=== PATIENT | male | born 1980 | race Caucasian/White ===

== ENCOUNTER → 2018-07-14 | Outpatient (CLI) | payer OTHER ==
--- NOTE | 2018-07-14 12:04 | KCIC ---
MR of the left ankle Indication: Pain and swelling of the left ankle. Injury 6 weeks ago. Comparison: None are available Technique: Standard multiplanar sequences are obtained. FINDINGS: Artifact: No significant image degradation. Lateral: Peroneal tendons: Intact, no dislocation Lateral collateral ligaments: * Anterior talofibular ligament: Not visualized, compatible with a rupture. * Calcaneofibular ligament: High-grade tear/rupture. * Posterior talofibular ligament: Intact Tibiofibular syndesmosis: Anterior inferior tibiofibular ligament is intact. Tibiofibular syndesmosis is intact. Medial: Posterior tibial tendon: Intact Flexor digitorum longus and hallucis tendons: Intact Medial ligaments: Diffuse edema and swelling of the deep fibers of the deltoid ligament. Anterior: Anterior tibial tendon: Intact Extensor hallucis longus tendon: Intact Extensor digitorum longus tendon: Intact Posterior: Achilles tendon: Intact Plantar aponeurosis: No acute plantar fasciitis Subtalar joints: Patent Tarsal sinus: Intact Talar Dome: Intact Bones: Marrow edema within the medial talus and medial malleolus. Marrow edema within the lateral distal tibia. No evidence of an acute fracture. Marrow edema within the medial navicular bone. Mild marrow edema at the anterior process of the calcaneus. Fluid: Small effusion Joints: No advanced DJD. Soft tissues: Unremarkable Impression: 1. Anterior talofibular and calcaneofibular ligament tears. 2. Deltoid ligament sprain. 3. Patchy areas of bone marrow edema/contusion. 4. Small tibiotalar joint effusion. Electronically signed by: Phi Maciel MD (07/14/2018 12:00 PM) [id number]
== END | disposition home or self-care (01) ==
LOC: KCIC MRI 09:26 → EDSEX 09:26
DX: S93.412A Sprain of calcaneofibular ligament of left ankle, initial encounter (principal); S93.492A Sprain of other ligament of left ankle, initial encounter; M25.472 Effusion, left ankle; X58.XXXA Exposure to other specified factors, initial encounter; Y93.89 Activity, other specified; Y92.89 Other specified places as the place of occurrence of the external cause; Y99.8 Other external cause status
CPT/HCPCS: 73721